=== PATIENT | female | born 1960 | race Caucasian/White ===

== ENCOUNTER 2021-01-15 15:47 | Emergency (ER) | payer OTHER ==
[~2021-01-15] VITALS: Ht 160 cm; Wt 61.2 kg
[2021-01-15] MEDS ORDERED: DICLOFENAC SODI75 MG PO (20:23)
== END 2021-01-15 20:39 | disposition home or self-care (01) ==
LOC: ER 15:47
DX: T14.90XA Injury, unspecified, initial encounter (principal); W18.39XA Other fall on same level, initial encounter; Y93.89 Activity, other specified; Y92.89 Other specified places as the place of occurrence of the external cause